=== PATIENT | male | born 1965 | race Caucasian/White ===

== ENCOUNTER 2020-10-31 04:52 | Emergency (ER) | payer BC ==
[2020-10-31] MEDS ORDERED: ASPIRIN 81 MG TABLET, CHEWABLE ONE (05:00)
[2020-10-31] MEDS ORDERED: CLOPIDOGREL BISULFATE 300 MG TABLET ONE (05:00)
[2020-10-31] MEDS ORDERED: NITROGLYCERIN 0.4 MG/TAB 25 TAB/BOTTLE ONE (05:00)
[2020-10-31] MEDS ORDERED: TENECTEPLASE INJ 50 MG KIT IV ONE ×2 (05:00→05:45)
[2020-10-31] MEDS: NITROGLYCERIN 0.4 MG/TAB 25 TAB/BOTTLE SL PRN ×3 (05:01→05:10)
[2020-10-31 05:11] LABS: ABSOLUTE BASOPHILS # (AUTO) 0.1 10^3/uL (0.0-0.2); ABSOLUTE EOSINOPHILS # (AUTO) 0.3 10^3/uL (0.0-0.6); ABSOLUTE LYMPHOCYTES (AUTO) 5.7 10^3/uL (0.5-4.7); ABSOLUTE MONOCYTES (AUTO) 1.6 10^3/uL (0.1-1.4); ABSOLUTE NEUT (AUTO) 5.3 10^3/uL (1.7-8.2); EOSINOPHILS % (AUTO) 2.1 % (0-6); HEMATOCRIT 45.5 % (37.9-51.0); HEMOGLOBIN 15.9 g/dL (13.5-17.0); LYMPHOCYTES % (AUTO) 43.4 % (13-45); MEAN CORPUSCULAR HEMOGLOBIN 29.1 pg (27.0-33.4); MEAN CORPUSCULAR HGB CONC 34.9 g/dL (32.0-36.0); MEAN CORPUSCULAR VOLUME 83 fl (80-97); MONOCYTES % (AUTO) 12.5 % (3-13); PLATELET COUNT 357 10^3/uL (150-450); RED BLOOD COUNT 5.45 10^6/uL (4.35-5.55); RED CELL DISTRIBUTION WIDTH 13.3 % (11.5-14.0); TOTAL CELLS COUNTED % (AUTO) 100 %; WHITE BLOOD COUNT 13.1 10^3/uL (4.0-10.5)
[2020-10-31] MEDS ORDERED: NITROGLYCERIN/D5W 50 MG/250 ML RTUINJ IV ONE (05:11)
--- NOTE | 2020-10-31 05:16 | ER Document Report ---
ED General - General Chief Complaint: Chest Pain Stated Complaint: CHEST PAIN, HIGH BLOOD PRESSURE Time Seen by Provider: 10/31/20 05:01 TRAVEL OUTSIDE OF THE [place] IN LAST 30 DAYS: No - HPI Context: Chief Complaint: [Chest pain] [This is a 54-year-old male with a history of hypertension presents complaining of chest pain that has been intermittent for the past week. Patient states that he has had chest pain at rest and with activity and then prior to presentation tonight he awoke from sleep with severe chest pain radiating into his left arm. ] History obtained from [patient] Symptoms began:[1 week ago] Onset: [Sudden] Timing: [Initially intermittent with and without activity then constant with radiation into the left arm just prior to arrival] Quality: [Sharp] Intensity: [7] Location: [Left chest] Radiation: [Left arm] ] Aggravating factors: [none] Relieving factors: [none] [Denies] SOB [Denies] nausea [Denies] vomiting [Denies] sweats [Denies] fever [Denies] cough [Denies] calf or leg swelling or pain Past Medical History - General Information source: Patient - Social History Smoking Status: Never Smoker Family History: Reviewed & Not Pertinent - Past Medical History Cardiac Medical History: Reports: Hx Hypertension Renal/ Medical History: Denies: Hx Peritoneal Dialysis Review of Systems - Review of Systems Notes: Review of systems as below unless otherwise stated in HPI. CONSTITUTIONAL [No] fever, [No] chills. EYES [No] eye pain. ENT [No] URI symptoms, [No] sore throat, [No] ear pain. CARDIOVASCULAR Positive chest pain, [No] palpitations, [No] edema. RESPIRATORY [No] Cough, [No] SOB, [No] wheezing. GASTROINTESTINAL [No] abdominal pain, [No] nausea, [No] Diarrhea, [No] Vomiting, [No] con stipation, [No] melena, [No] rectal bleeding. GENITOURINARY [No] dysuria, [No] urinary frequency, [No] hematuria, [No] urinary urgency MUSCULOSKELETAL [No] Back pain. SKIN [No] Rash. NEUROLOGIC [No] Headache, [No] recent seizures, [No] paralysis,[No] parathesias. ENDOCRINE [No] polyuria. HEMO/LYMPATIC [No] easy brusing PSYCHIATRIC [No] depression. Physical Exam - Vital signs Vitals: Resp Pulse Ox 17 100 10/31/20 04:56 10/31/20 04:56 - Notes Notes: CONSTITUTIONAL [Vital signs reviewed, Patient appears uncomfortable and anxious, Alert and oriented X 3, Normal stature.] HEAD [Atraumatic, Normocephalic.] EYES [Eyes are normal to inspection, No discharge from eyes, Extraocular muscles intact, Sclera are normal, Conjunctiva are normal.] ENT [External ears normal to inspection, Nose examination normal, Mouth normal to inspection.] NECK [Normal ROM, No jugular venous distention, No meningeal signs, ] RESPIRATORY CHEST [Chest is nontender, Breath sounds normal, No respiratory distress.] CARDIOVASCULAR [RRR, No murmurs, Normal S1 S2, No rub, No gallop.] ABDOMEN [Abdomen is nontender, No pulsatile masses, No other masses, Bowel sounds normal, No distension, No peritoneal signs, No hernias.] BACK [There is no CVA Tenderness, There is no tenderness to palpation, Normal inspection.] UPPER EXTREMITY [Inspection normal, No cyanosis, No clubbing, No edema, LOWER EXTREMITY [Inspection normal, No cyanosis, No clubbing, No edema, No calf tenderness, NEURO [No focal motor deficits, No focal sensory deficits, Speech normal.] SKIN [Skin is warm, Skin is dry, Skin is normal color.] PSYCHIATRIC Anxious affect. ] Course - Re-evaluation Re-evalutation: 10/31/20 05:48 Pain is currently down to 2 from 7. Plan of care, transfer to [facility], diagnosis all discussed with patient. All questions were answered prior to transfer. - Vital Signs Vital signs: Temp Pulse Resp BP Pulse Ox 96.5 F L 19 148/98 H 99 10/31/20 05:47 10/31/20 05:42 10/31/20 05:42 10/31/20 05:42 - Laboratory Results Result Diagrams: 10/31/20 05:01 10/31/20 05:01 Laboratory Results Interpreted: 10/31/20 10/31/20 05:01 05:01 WBC 13.1 H Absolute Lymphs (auto) 5.7 H Absolute Monos (auto) 1.6 H Seg Neutrophils % 41.0 L Chloride 108 H Critical Laboratory Results Reviewed: No Critical Results Attending or Supervising Physician who Reviewed Labs: WILLIAM AVILA IV - Radiology Results Critical Radiology Results Reviewed: No Critical Results Attending or Supervising Physician who Reviewed Radiology: WILLIAM AVILA IV - EKG Interpretation by Me Additional EKG results interpreted by me: 10/31/20 05:50 EKG obtained on 10/31/2020 0455 hrs. was interpreted by this MD. Findings: Sinus tachycardia, rate 101, normal axis, AK interval appears within normal limits, P waves proceed QRS complexes, QTC is 462 morphology of the patient's EKG is concerning for ST elevation and V1 through V3 with ST depression in inferior leads as well as V5 and V6. There is no prior EKG available for comparison. Impression: Acute STEMI repeat EKG obtained on 10/31/2020 and 0542 hrs. was interpreted by this MD. Findings sinus rhythm, rate 88, AK interval appears to be within normal limits, P waves proceed QRS complexes, there remains ST elevation in leads V1 through V3 and persistent ST depression in the inferior leads. Compared with prior EKG, evidence of acute STEMI is still present. Impression: Acute STEMI - Consults Dr. hendricks, picker operator and Dr. Paiz with CICU at [facility] Time consulted: 05:19 - Dr. Hendricks recommended thrombolytics and Dr. Paiz excepted the patient to the CICU at [facility] Reason for consultation: 10/31/20 05:54 STEMI Critical Care Note - Critical Care Note Total time excluding time spent on procedures (mins): 60 - Management of STEMI Discharge - Discharge Clinical Impression: STEMI (ST elevation myocardial infarction) Qualifiers: Involved coronary artery: LAD coronary artery Qualified Code(s): I21.02 - ST elevation (STEMI) myocardial infarction involving left anterior descending coronary artery Condition: Stable Disposition: [facility]
[2020-10-31] MEDS ORDERED: ENOXAPARIN SODIUM INJ 100 MG/1 ML DISP.SYRIN SUBCUT ONE ×2 (05:20→05:45)
[2020-10-31 05:21] LABS: ALBUMIN 4.8 g/dL (3.5-5.0); ALKALINE PHOSPHATASE 85 U/L (38-126); ANION GAP 9 (5-19); ASPARTATE AMINO TRANSFERASE 31 U/L (17-59); BILIRUBIN,DIRECT 0.2 mg/dL (0.0-0.4); BILIRUBIN,TOTAL 0.5 mg/dL (0.2-1.3); BLOOD UREA NITROGEN 17 mg/dL (7-20); CALCIUM 10.1 mg/dL (8.4-10.2); CARBON DIOXIDE 23 mmol/L (22-30); CHLORIDE 108 mmol/L (98-107); CREATINE KINASE 128 U/L (55-170); GLUCOSE 104 mg/dL (75-110); POTASSIUM 4.1 mmol/L (3.6-5.0); TOTAL PROTEIN 8.2 g/dL (6.3-8.2)
[2020-10-31] MEDS ORDERED: NITROGLYCERIN/D5W 50 MG/250 ML RTUINJ IV PRN (05:23)
[2020-10-31] MEDS ORDERED: MORPHINE SULFATE 10 MG/ML INJ IV ONE ×2 (05:32→06:00)
[2020-10-31 05:33] LABS: CREATINE KINASE MB 1.16 ng/mL (<4.55)
[2020-10-31] MEDS ORDERED: ONDANSETRON HCL INJ/PF 4 MG/2 ML SDV IV ONE (05:33)
[2020-10-31 05:37] LABS: TROPONIN I < 0.012 ng/mL
[2020-10-31] MEDS ORDERED: NORMAL SALINE 1000 ML 1,000 ML IV PRN (05:42)
[2020-10-31] MEDS ORDERED: DEXTROSE 5%-WATER 250 ML with NITROPRUSSIDE SODIUM 50 MG IV PRN ×2 (05:44)
[2020-10-31] MEDS ORDERED: ASPIRIN 81 MG TABLET, CHEWABLE PO ONE (05:45)
[2020-10-31] MEDS ORDERED: CLOPIDOGREL BISULFATE 300 MG TABLET PO ONE (05:45)
--- NOTE | 2020-10-31 06:06 | RADIOLOGY REPORT (SQ) ---
CLINICAL HISTORY: chest pain COMPARISON: None. TECHNIQUE: XR CHEST 1 VIEW 10/31/2020 4:[address] MANAGER FINDINGS: Cardiac silhouette is normal in size. Lungs are clear without consolidation, atelectasis, mass or edema. There is no pleural effusion. There is no pneumothorax. There are no acute osseous findings. IMPRESSION: Clear lungs.
[2020-10-31 06:16] VITALS: BP 139/92
--- NOTE | 2020-10-31 22:37 | EKG REPORT ---
SEVERITY:- ABNORMAL ECG - SINUS RHYTHM CONSIDER ANTEROSEPTAL INFARCT MINIMAL ST DEPRESSION, INFERIOR LEADS : Confirmed by: Angelito Ludwig 31-Oct-2020 22:37:04
--- NOTE | 2020-10-31 22:37 | EKG REPORT ---
SEVERITY:- ABNORMAL ECG - SINUS TACHYCARDIA CONSIDER ANTEROSEPTAL INFARCT ST DEPRESSION, CONSIDER ISCHEMIA, INF LEADS : Confirmed by: Angelito Ludwig 31-Oct-2020 22:37:20
== END 2020-10-31 06:37 | disposition short-term general hospital (02) ==
LOC: ER 04:52
DX: I21.02 ST elevation (STEMI) myocardial infarction involving left anterior descending coronary artery (principal); R07.9 Chest pain, unspecified; I10 Essential (primary) hypertension; Z20.822 Contact with and (suspected) exposure to COVID-19
CPT/HCPCS: 93005; 99285; 96372; 96361; 96375; 96365; 36415; 82553; 82550; 85025; 0241U ×4; 80053; 84484; 71045; 93010; J3101; J3490 ×2; J2270; J2405; J7030; J1650; C9803